=== PATIENT | male | born 1990 | race African-American/Black ===

== ENCOUNTER 2019-10-30 21:02 | Emergency (ER) | payer BC ==
[~2019-10-30] VITALS: Ht 188 cm; Wt 91.3 kg
--- NOTE | 2019-10-30 21:16 | PHYS DOC ---
Past History Past Surgical History Repair of right little -5 th finger fracture- screw placement Adult General Chief Complaint Chief Complaint: ".. I had this pimple on... my upper lip... It seemed to be getting worse the last couple days.. so I squeezed it ...and then stuck a needle in it.... Then tonight my whole upper lip and left side face started swelling... And it is a lot more painful...." HPI HPI Patient is a 29 year old male who presents with above hx and complaints of facial edema. Patient had a left upper lip pimple that he attempted to drain, since the attempt to drain has developed facial cellulitis and edema. Does have some mild adenopathy at ankle of left jaw. Patient does not know his last tetanus shot. No recent travel. No specific ill contacts. Has not had a history of cellulitis or MRSA in the past.. No history immunosuppression. Pt. follows with [facility] for care. Review of Systems Review of Systems Constitutional: Subjective complaints of fever Eyes: Denies change in visual acuity, redness, or eye pain [] HENT: Denies nasal congestion or sore throat . Patient has []complaints of left upper lip lesion and facial cellulitis. Respiratory: Denies cough or shortness of breath [] Cardiovascular: No additional information not addressed in HPI [] GI: Denies abdominal pain, nausea, vomiting, bloody stools or diarrhea [] : Denies dysuria or hematuria [] Musculoskeletal: Denies back pain or joint pain [] Integument: Denies rash or skin lesions [] Neurologic: Denies headache, focal weakness or sensory changes [] Endocrine: Denies polyuria or polydipsia [] All other systems were reviewed and found to be within normal limits, except as documented in this note. Family History Family History Noncontributory Current Medications Current Medications See nursing for home meds Physical Exam Physical Exam Constitutional: Well developed, well nourished, moderate acute distress, non- toxic appearance. [] HENT: Normocephalic, , bilateral external ears normal, oropharynx moist, no oral exudates, nose normal. [Left upper lip lesion with surrounding facial cellulitis, swelling and adenopathy Eyes: PERRLA, EOMI, conjunctiva normal, no discharge. [] Neck: Normal range of motion, no tenderness, supple, no stridor. [] Cardiovascular:Heart rate regular rhythm, no murmur [] Lungs & Thorax: Bilateral breath sounds equal at apex auscultation [] Abdomen: Bowel sounds normal, soft, no tenderness, no masses, no pulsatile masses. [] Skin: Warm, dry, no erythema, no rash. [] Back: No tenderness, no CVA tenderness. [] Extremities: No tenderness, no cyanosis, no clubbing, ROM intact, no edema. [] S car right little finger. Neurologic: Alert and oriented X 3, normal motor function, normal sensory function, no focal deficits noted. [] Psychologic: Affect anxious, judgement normal, mood normal. [] EKG EKG [] Radiology/Procedures Radiology/Procedures [] Course & Med Decision Making Course & Med Decision Making Pertinent Labs and Imaging studies reviewed. (See chart for details) Patient use Tylenol and ibuprofen for pain. Patient use warm moist salt or Epsom salts compresses 4 times a day. After compresses massage area were Polysporin. Patient take Bactrim DS twice a day. Patient follow-up primary care. Patient follow-up blood pressure follow-up primary care. Return if any concerns. Impression- 1. Left upper lip facial cellulitis 2. Elevated blood pressure [] Dragon Disclaimer Dragon Disclaimer This electronic medical record was generated, in whole or in part, using a voice recognition dictation system. Departure Departure: Disposition: 01 HOME/RESIDENCE PRIOR TO ADM Condition: STABLE Referrals: TOMAS LIMA (PCP) Scripts Sulfamethoxazole/Trimethoprim (BACTRIM DS TABLET) 1 Each Tablet 1 TAB PO BID for facial cellultis for 10 Days, #20 TAB 0 Refills Prov: DENISSE FLOWER MD 10/30/19 [employer] Disclaimer This chart was dictated in whole or in part using Voice Recognition software in a busy, high-work load, and often noisy Emergency Department environment. It may contain unintended and wholly unrecognized errors or omissions. DENISSE FLOWER MD Oct 30, 2019 21:16
[2019-10-30] MEDS ORDERED: SULF1TAB24 PO (21:37)
[2019-10-30 21:50] VITALS: BP 155/72
[2019-10-30] MEDS ORDERED: DIPHTH,PERTUSS(ACELL),TET TOX 0.5 ML DISP.SYRIN. VAX IM ONE (22:00)
[2019-10-30] MEDS ORDERED: SMZ/TMP 800/160MG TABLET. PO ONE (22:00)
== END 2019-10-30 21:55 | disposition home or self-care (01) ==
LOC: ER 21:02
DX: L03.211 Cellulitis of face (principal); I10 Essential (primary) hypertension
CPT/HCPCS: 90471; 90715; 99283-25